=== PATIENT | male | born 1990 | race African-American/Black ===

== ENCOUNTER 2018-06-16 11:10 | Emergency (ER) | payer SELFPAY ==
[~2018-06-16] VITALS: Ht 182.9 cm; Wt 70.3 kg
[~2018-06-16 11:10] MED LIST: CYCL5TAB PO; NAPR-683 PO
[2018-06-16 11:38] VITALS: BP 143/80
[2018-06-16] MEDS ORDERED: CEPH500C PO (12:10)
[2018-06-16] MEDS ORDERED: SULF1TAB24 PO (12:10)
--- NOTE | 2018-06-16 12:36 | PHYS DOC ---
Past Medical History Past Medical History: No Pertinent History Past Surgical History: No Surgical History Alcohol Use: None Drug Use: Marijuana Adult General Chief Complaint Chief Complaint: GROIN PAIN HPI HPI Patient is a 27 year old male who presents with chief complaint of swollen right groin he had a ingrown hair a few weeks ago and then last week he noticed there was a bump on his groin hurts to bend over no fever no other symptoms no other lesions anywhere no past medical history no dysuria no testicle pain. Symptoms are mild dull nonradiating Review of Systems Review of Systems Allergies Allergies Allergies Coded Allergies Type Severity Reaction Last Updated Verified No Known Drug Allergies 02/26/16 No Physical Exam Physical Exam Constitutional: Well developed, well nourished, no acute distress, non-toxic appearance. [] HENT: Normocephalic, atraumatic, bilateral external ears normal, oropharynx moist, no oral exudates, nose normal. [] Eyes: PERRLA, EOMI, conjunctiva normal, no discharge. [] Neck: Normal range of motion, no tenderness, supple, no stridor. [] Pulmonary: Normal respiratory effort no increased work of breathing no obvious chest wall trauma Abdomen: Bowel sounds normal, soft, no tenderness, no masses, no pulsatile masses. [] Groin: Patient testicles are normal. There is a a large group of lymph nodes over the right inguinal region mild tenderness there is also a healing folliculitis noted to the right pubic hair area. Skin: Warm, dry, no erythema, no rash. [] Extremities: No tenderness, no cyanosis, no clubbing, ROM intact, no edema. [] Neurologic: Alert and oriented X 3, normal motor function, normal sensory function, no focal deficits noted. [] Psychologic: Affect normal, judgement normal, mood normal. [] Current Patient Data Vital Signs Vital Signs Date Time Temp Pulse Resp B/P (MAP) Pulse Ox O2 Delivery O2 Flow Rate FiO2 06/16/18 11:38 98.4 67 16 143/80 (101) 99 Room Air 98.4 EKG EKG [] Radiology/Procedures Radiology/Procedures [] Course & Med Decision Making Course & Med Decision Making Pertinent Labs and Imaging studies reviewed. (See chart for details) []Suspect mild lymphadenitis of the right groin region. Antibiotics were given patient was instructed on the importance of follow-up for reevaluation within 2- 3 week should the symptoms not resolve with the appropriate above treatment he may need further testing he is aware of that. Dragon Disclaimer Dragon Disclaimer This electronic medical record was generated, in whole or in part, using a voice recognition dictation system. Departure Departure Impression: Primary Impression: Lymphadenitis Disposition: HOME, SELF-CARE Condition: STABLE Patient Instructions: Folliculitis Additional Instructions: be rechecked in 3 weeks if the swelling doesnt go away. Scripts Sulfamethoxazole/Trimethoprim (BACTRIM DS TABLET) 1 Each Tablet 1 TAB PO BID, #20 TAB Prov: ZAID HAGEN MD 06/16/18 Cephalexin (CEPHALEXIN) 500 Mg Capsule 1 CAP PO QID, #40 CAP Prov: ZAID HAGEN MD 06/16/18 ZAID HAGEN MD Jun 16, 2018 12:36
== END 2018-06-16 12:20 | disposition home or self-care (01) ==
LOC: ER 11:10
DX: I88.8 Other nonspecific lymphadenitis (principal); L73.1 Pseudofolliculitis barbae
CPT/HCPCS: 99283; 99284

== ENCOUNTER 2021-03-26 16:54 | Emergency (ER) | payer SELFPAY ==
[~2021-03-26] VITALS: Ht 182.9 cm; Wt 75.0 kg
[~2021-03-26 16:54] MED LIST changes: +CEPH500C PO; +SULF1TAB24 PO
[2021-03-26] MEDS ORDERED: ASPIRIN 325 MG TABLET PO ONE (17:15)
[2021-03-26] MEDS ORDERED: IV NORMAL SALINE 1000ML BAG 1,000 ML IV ONE (17:15)
[2021-03-26] MEDS ORDERED: DEXAMETHASONE SOD PHOS 20 MG/5 ML VIAL. IV ONE (17:15)
[2021-03-26 17:44] LABS: BASO # 0.1 x10^3/uL (0.0-0.2); BASO % 1 % (0-3); EOS % 0 % (0-3); HEMOGLOBIN 14.2 g/dL (13.0-17.5); LYMPH # 1.4 x10^3/uL (1.0-4.8); LYMPH % 20 % (24-48); MEAN CORPUSCULAR HEMOGLOBIN 29 pg (25-35); MEAN CORPUSCULAR HGB CONC 35 g/dL (31-37); MEAN CORPUSCULAR VOLUME 84 fL (79-100); MONO # 0.9 x10^3/uL (0.0-1.1); MONO % 13 % (0-9); NEUT # 4.8 x10^3/uL (1.8-7.7); NEUT % 67 % (31-73); PLATELET COUNT 172 x10^3/uL (140-400); RED CELL DISTRIBUTION WIDTH 13.8 % (11.5-14.5); WHITE BLOOD COUNT 7.2 x10^3/uL (4.0-11.0)
--- NOTE | 2021-03-26 17:55 | PHYS DOC ---
Past Medical History Past Medical History: No Pertinent History (SOTO ZARCO ) Past Surgical History: No Surgical History (SOTO ZARCO ) Smoking Status: Never Smoker Alcohol Use: None Drug Use: Marijuana (SOTO ZARCO ) General Adult EDM: Chief Complaint: CHEST PAIN HPI: HPI: Patient is a 30 year old male patient with no significant medical history who presents to the ED today with multiple complaints. Patient states he has 8 out of 10 sharp epigastric chest pains, symptoms began yesterday. Patient denies anything specifically exacerbating or relieving his symptoms. He states on Saturday last week he received a Covid vaccine by [employer]. He states on he developed body aches and nasal congestion. Patient denies any coughing. (SOTO ZARCO ) Review of Systems: Review of Systems: Constitutional: Reports body aches. Denies fever or chills. [] Eyes: Denies change in visual acuity. [] HENT: Reports nasal congestion, denies sore throat. [] Respiratory: Denies cough or shortness of breath. [] Cardiovascular: Reports epigastric pain GI: Denies abdominal pain, nausea, vomiting, bloody stools or diarrhea. [] : Denies dysuria. [] Musculoskeletal: Denies back pain or joint pain. [] Integument: Denies rash. [] Neurologic: Denies headache, focal weakness or sensory changes. [] ] Psychiatric: Denies depression or anxiety. [] (SOTO ZARCO ) Heart Score: C/O Chest Pain: Yes HEART Score for Chest Pain: HEART Score for Chest Pain Response (Comments) Value History Slighlty/Non-Suspicious 0 ECG Normal 0 Age < 45 0 Risk Factors No Risk Factors 0 Troponin < Normal Limit 0 Total 0 Risk Factors: Risk Factors: DM, Current or recent (<one month) smoker, HTN, HLP, family history of CAD, obesity. Risk Scores: Score 0 - 3: 2.5% MACE over next 6 weeks - Discharge Home Score 4 - 6: 20.3% MACE over next 6 weeks - Admit for Clinical Observation Score 7 - 10: 72.7% MACE over next 6 weeks - Early Invasive Strategies (SOTO ZARCO Jose ) C/O Chest Pain: N/A (AYO,RADHA I DO) Current Medications: Current Medications Medications (Trade) Dose Ordered Sig/[facility] Start Time Stop Time Status Last Admin Dose Admin Aspirin (Edith Aspirin) 325 mg 1X ONCE 03/26/21 17:15 03/26/21 17:16 DC 03/26/21 17:42 325 MG Dexamethasone Sodium Phosphate (Decadron) 10 mg 1X ONCE 03/26/21 17:15 03/26/21 17:16 DC 03/26/21 17:42 10 MG Sodium Chloride 1,000 ml @ 1,000 mls/hr 1X ONCE 03/26/21 17:15 03/26/21 18:14 03/26/21 17:42 1,000 MLS/HR (SOTO ZARCO TEACHER AIDE CLERICAL) Allergies: Allergies: Allergies Coded Allergies Type Severity Reaction Last Updated Verified No Known Drug Allergies 03/26/21 No (SOTO ZARCO TEACHER AIDE CLERICAL) Physical Exam: PE: Constitutional: Well developed, well nourished, no acute distress, non-toxic appearance. [] HENT: Normocephalic, atraumatic, bilateral external ears normal, oropharynx moist, no oral exudates, patient sounds congested nasally Eyes: PERRLA, EOMI, conjunctiva normal, no discharge. [] Neck: Normal range of motion, no tenderness, supple, no stridor. [] Cardiovascular:Heart rate regular rhythm, no murmur [] Lungs & Thorax: Bilateral breath sounds clear to auscultation [] Abdomen: Bowel sounds normal, soft, no tenderness, no masses, no pulsatile masses. [] Skin: Warm, dry, no erythema, no rash. [] Back: No tenderness, no CVA tenderness. [] Extremities: No tenderness, no cyanosis, no clubbing, ROM intact, no edema. [] Neurologic: Alert and oriented X 3, normal motor function, normal sensory function, no focal deficits noted. [] Psychologic: Affect normal, judgement normal, mood normal. [] (SOTO ZARCO TEACHER AIDE CLERICAL) Current Patient Data: Labs: Laboratory Tests Test 03/26/21 17:36 White Blood Count 7.2 x10^3/uL (4.0-11.0) Red Blood Count 4.90 x10^6/uL (4.30-5.70) Hemoglobin 14.2 g/dL (13.0-17.5) Hematocrit 41.0 % (39.0-53.0) Mean Corpuscular Volume 84 fL (79-100) Mean Corpuscular Hemoglobin 29 pg (25-35) Mean Corpuscular Hemoglobin Concent 35 g/dL (31-37) Red Cell Distribution Width 13.8 % (11.5-14.5) Platelet Count 172 x10^3/uL (140-400) Neutrophils (%) (Auto) 67 % (31-73) Lymphocytes (%) (Auto) 20 % (24-48) L Monocytes (%) (Auto) 13 % (0-9) H Eosinophils (%) (Auto) 0 % (0-3) Basophils (%) (Auto) 1 % (0-3) Neutrophils # (Auto) 4.8 x10^3/uL (1.8-7.7) Lymphocytes # (Auto) 1.4 x10^3/uL (1.0-4.8) Monocytes # (Auto) 0.9 x10^3/uL (0.0-1.1) Eosinophils # (Auto) 0.0 x10^3/uL (0.0-0.7) Basophils # (Auto) 0.1 x10^3/uL (0.0-0.2) Laboratory Tests 03/26/21 17:36 Vital Signs: Vital Signs Date Time Temp Pulse Resp B/P (MAP) Pulse Ox O2 Delivery O2 Flow Rate FiO2 03/26/21 17:03 98.5 66 20 191/104 (101) 100 Room Air 98.5 (SOTO ZARCO TEACHER AIDE CLERICAL) EKG: EK interpreted by Dr. Torrez sinus rhythm heart rate 62 no STEMI [] (SOTO ZARCO TEACHER AIDE CLERICAL) Radiology/Procedures: Radiology/Procedures: []PROCEDURE: PORTABLE CHEST 1V Exam: Chest one view INDICATION: Chest pain TECHNIQUE: Frontal view of the chest Comparisons: None FINDINGS: The cardiomediastinal silhouette and pulmonary vessels are within normal limits. The lung and pleural spaces are clear. IMPRESSION: No acute cardiopulmonary process. Electronically signed by: Trevor Mata MD (03/26/2021 6:20 PM) [facility] DICTATED and SIGNED BY: TREVOR MATA MD DATE: 03/26/21 [id number] (SOTO ZARCO APRN) Course & Med Decision Making: Course & Med Decision Making Pertinent Labs and Imaging studies reviewed. (See chart for details) This is a 30-year-old male patient presenting to the ED today complaining of epigastric chest pain, nasal congestion, and body aches, he received a Covid vaccine on Saturday. Chest x-ray is negative, EKG is negative, labs are negative. Reassured patient. Discharge to home. Supportive care measures recommended. (SOTO ZARCO APRN) Course & Med Decision Making Patients Care and treatment plan provided by ER Nurse Practitioner. I was available for consult. Patient's chart reviewed. (RADHA ROLLINS DO) Dragon Disclaimer: Dragon Disclaimer: This electronic medical record was generated, in whole or in part, using a voice recognition dictation system. (SOTO ZARCO APRN) Departure Departure Impression: Primary Impression: Upper respiratory infection Qualified Codes: J06.9 - Acute upper respiratory infection, unspecified Additional Impressions: Chest pain Qualified Codes: R07.9 - Chest pain, unspecified Body aches Disposition: HOME / SELF CARE / HOMELESS Condition: STABLE Referrals: NO PCP (PCP) Follow-up with your doctor in 1 week Patient Instructions: Upper Respiratory Infection, Adult, [id number] Additional Instructions: You were evaluated in the emergency room with some of the side effects from Covid vaccine. We encourage you to rest, push fluids, take Tylenol or Motrin as needed for pain. Maintain good hand hygiene. Come back to the ER at any point symptoms worsen SOTO ZARCO APRN Mar 26, 2021 17:55 RADHA ROLLINS DO Mar 30, 2021 18:11
[2021-03-26 17:57] LABS: CALCIUM 9.2 mg/dL (8.5-10.1); GFR 106.2; POTASSIUM 3.5 mmol/L (3.5-5.1)
[2021-03-26 18:03] LABS: ALBUMIN 4.3 g/dL (3.4-5.0); ALBUMIN/GLOBULIN RATIO 1.3 (1.0-1.7); MAGNESIUM 1.4 mg/dL (1.8-2.4); TOTAL BILIRUBIN 0.4 mg/dL (0.2-1.0); TOTAL PROTEIN 7.7 g/dL (6.4-8.2)
--- NOTE | 2021-03-26 18:22 | RAD ---
Exam: Chest one view INDICATION: Chest pain TECHNIQUE: Frontal view of the chest Comparisons: None FINDINGS: The cardiomediastinal silhouette and pulmonary vessels are within normal limits. The lung and pleural spaces are clear. IMPRESSION: No acute cardiopulmonary process. Electronically signed by: Trevor Rae MD (03/26/2021 6:20 PM) [facility]
[2021-03-26 18:36] VITALS: BP 160/99
[2021-03-26] MEDS ORDERED: LIDO:MAALOX 1:1 20 ML SINGLE DOSE. SWSW ONE (19:00)
--- NOTE | 2021-03-26 22:16 | EKG ---
[facility] [address] [place] [address] Test Date: 2021-03-26 Test Time: 17:03:33 Pat Name: GHAZAL DOWNING Department: Room: Gender: M [employer] Prevention Manager: : 1990 Requested By: SOTO ZARCO Order Number: [id number] Reading MD: Measurements Intervals Lucile Rate: 62 P: ID: QRS: -39 QRSD: 96 T: 47 QT: 400 QTc: 408 Interpretive Statements IRREGULAR RHYTHM, NO P-WAVE FOUND S1,S2,S3 PATTERN QRS(T) CONTOUR ABNORMALITY CONSIDER ANTEROSEPTAL MYOCARDIAL DAMAGE POSSIBLY ABNORMAL ECG RI6.01 No previous ECG available for comparison
== END 2021-03-26 19:05 | disposition home or self-care (01) ==
LOC: ER 16:54
DX: J06.9 Acute upper respiratory infection, unspecified (principal); R07.89 Other chest pain
CPT/HCPCS: 36415; 71045; 80053; 83735; 83880; 84443; 84484; 85025; 93005; 96361; 96374; 99285; J1100; J7030